=== PATIENT | female | born 1940 | race Two or more races ===

== ENCOUNTER → 2023-11-24 | Outpatient (CLI) | payer MEDICARE ==
[2023-11-24 07:47] LABS: Triglycerides 80 mg/dL (< 150)
[2023-11-24 07:48] LABS: LDL Cholesterol 106 mg/dL (< 100)
[2023-11-24 07:49] LABS: Cholesterol 175 mg/dL (< 200); HDL Cholesterol 54 mg/dL (40-59)
[2023-11-24 08:12] LABS: Protein, Urine 14.7 mg/dL (0.0-11.9)
[2023-11-24 08:15] LABS: Creatinine, Urine 76.94 mg/dL (30.0-125.0); Urine Protein/Creatinine Ratio 0.19
== END | disposition home or self-care (01) ==
LOC: LAB 07:07
PROVIDERS: ATTEND Internal Medicine
DX: I10 Essential (primary) hypertension (principal); E11.65 Type 2 diabetes mellitus with hyperglycemia; E78.00 Pure hypercholesterolemia, unspecified
CPT/HCPCS: 36415; 80061; 82043; 82570; 83036; 84156

== ENCOUNTER → 2024-04-11 | Outpatient (CLI) | payer MEDICARE ==
[2024-04-11 07:43] LABS: Creatinine, Urine 114.93 mg/dL (30.0-125.0); Urine Protein/Creatinine Ratio 0.1
[2024-04-11 08:08] LABS: Alanine Aminotransferase 18 U/L (7-40); Albumin 4.7 g/dL (3.2-4.8); Alkaline Phosphatase 143 U/L (46-116); Anion Gap 9 (5-15); Aspartate Aminotransferase 17 U/L (13-40); BUN/Creatinine Ratio 23.5 (10.0-20.0); Blood Urea Nitrogen 23 mg/dL (9-23); Carbon Dioxide 24 mmol/L (20-30); Chloride 109 mmol/L (98-107); Cholesterol 161 mg/dL (< 200); Glucose 119 mg/dL (74-106); HDL Cholesterol 53 mg/dL (40-59); LDL Cholesterol 91 mg/dL (< 100); Potassium 4.2 mmol/L (3.5-5.1); Sodium 142 mmol/L (136-145); Triglycerides 65 mg/dL (< 150)
[2024-04-11 08:09] LABS: Bilirubin, Total 0.8 mg/dL (0.2-1.0); Total Protein 7.6 g/dL (5.7-8.2)
== END | disposition home or self-care (01) ==
LOC: LAB 06:58
PROVIDERS: ATTEND Internal Medicine
DX: I10 Essential (primary) hypertension (principal); E78.00 Pure hypercholesterolemia, unspecified; E11.65 Type 2 diabetes mellitus with hyperglycemia
CPT/HCPCS: 36415; 80053; 80061; 82043; 82570; 83036; 84156

== ENCOUNTER → 2024-11-15 | Outpatient (CLI) | payer OTHER ==
[2024-11-15 07:41] LABS: Urine Bacteria None Seen /hpf (None Seen)
[2024-11-15 08:18] LABS: Urine Blood Negative /uL (Negative); Urine Clarity Clear (Clear); Urine Color Light-Yellow (Yellow); Urine Protein, UAD Negative (Negative); Urine Specific Gravity 1.021 (1.001-1.035); Urine Squamous Epithelial Cell FEW /hpf (<5); Urine Urobilinogen Normal (Negative); Urine WBC 6 /HPF (0-5)
[2024-11-15 08:34] LABS: Alanine Aminotransferase 17 U/L (7-40); Anion Gap 9 (5-15); BUN/Creatinine Ratio 19.1 (10.0-20.0); Blood Urea Nitrogen 18 mg/dL (9-23); Carbon Dioxide 23 mmol/L (20-31); Chloride 107 mmol/L (98-107); Potassium 4.2 mmol/L (3.5-5.1); Sodium 139 mmol/L (136-145); Total Protein 7.5 g/dL (5.7-8.2); Triglycerides 93 mg/dL (< 150)
[2024-11-15 08:35] LABS: Albumin 4.6 g/dL (3.2-4.8)
[2024-11-15 08:36] LABS: Aspartate Aminotransferase 17 U/L (13-40); Bilirubin, Total 0.7 mg/dL (0.2-1.0); Cholesterol 178 mg/dL (< 200); HDL Cholesterol 51 mg/dL (40-59)
[2024-11-15 08:38] LABS: Alkaline Phosphatase 143 U/L (46-116); Calcium 11.2 mg/dL (8.7-10.4); Glucose 164 mg/dL (74-106); LDL Cholesterol 109 mg/dL (< 100)
[2024-11-15 08:55] LABS: Creatinine, Urine 129.62 mg/dL (30.0-125.0)
== END | disposition home or self-care (01) ==
LOC: LAB 07:21
PROVIDERS: ATTEND Internal Medicine
DX: I10 Essential (primary) hypertension (principal); E11.65 Type 2 diabetes mellitus with hyperglycemia; E78.00 Pure hypercholesterolemia, unspecified
CPT/HCPCS: 36415; 80053; 80061; 81001; 82043; 82570; 83036; 87086

== ENCOUNTER 2025-07-26 13:47 | Emergency (ER) | payer OTHER ==
[~2025-07-26] VITALS: Ht 170.2 cm; Wt 74.8 kg
--- NOTE | 2025-07-26 14:56 | ED.PDOC ---
Nicolás. trauma (HPI) HPI Comments A 84 YEAR OLD FEMALE PRESENTS TO THE ED WITH COMPLAINT OF MULTIPLE FALL INJURY. PT PRESENTS WITH SON WHO STATES PT HAD FIRST FALL IN MIDDLE OF NIGHT WHEN SHE GOT UP TO USE RESTROOM AND HAD ANOTHER FALL WHILE IN SHOWER AT APPROXIMATELY 1300 THIS AFTERNOON. PATIENT STATES SHE DID NOT HIT HER HEAD OR HAVE ANY ASSOCIA HUONG LOSS OF CONSCIOUSNESS AFTER BOTH FALLS BUT STATES SHE HAS BEEN HAVING INCREASED WEAKNESS AND GENERALIZED MALAISE AND CAME TO THE ED FOR EVALUATION. PATIENT IN THE ED STATES THAT SHE HAS BEEN HAVING THIS WEAKNESS FOR THE PAST 3 - 4 DAYS AND STATES SHE HAS BEEN HAVING ASSOCIATED INCREASE URINARY FREQUENCY AND DYSURIA. PATIENT DENIES FEVER, CHILLS, SHORTNESS OF BREATH, CHEST PAIN, ABDOMINAL PAIN, NAUSEA, VOMITING, HEADACHE, OR OTHER COMPLAINTS. NO OTHER SYMPTOMS OR MODIFYING FACTORS AT THIS TIME. PATIENT IS ALERT, ORIENTED X 4, AND HAS STEADY GAIT. Chief Complaint: Fall Injury Time Seen by MD: 14:52 Reviewed notes: Nurses Notes, Medications, Allergies Allergies: Coded Allergies: NO KNOWN ALLERGIES (Unverified , 07/26/25) Home Meds Active Scripts Phenazopyridine HCl (Phenazopyridine Hydrochlo) 200 Mg Tab, 200 MG PO TID, #6 TAB Prov:NANDO WEINBERG 07/26/25 Levofloxacin Hemihydrate (LEVAQUIN 500 MG) 500 Mg Tab, 1 TAB PO DAILY, #7 TAB Prov:NANDO WEINBERG 07/26/25 Information Source: Patient, Relative Mode of Arrival: Ambulatory Brought in by: PATIENT'S SON Severity: Mild, Moderate Timing: Days Duration: Since onset, Days Prehospital treatment: None Mechanism: Fall Associated signs and symtoms: None Past Medical History PAST MEDICAL HISTORY: DM, HTN Surgical History: Denies all surgeries NETWORKING ENGINEER History: Denies all NETWORKING ENGINEER Hx Family History Family History: Reviewed,noncontributory to illness Social History Smoker: Non-Smoker Alcohol: Denies ETOH Use Drugs: Denies Drug Use Lives In: Home Constitutional: reports: fatigue, weakness; denies: chills, diaphoresis, fever, malaise, sweats, others EENTM: denies: blurred vision, double vision, ear bleeding, ear discharge, ear drainage, ear pain, ear ringing, eye pain, eye redness, hearing loss, mouth pain, mouth swelling, nasal discharge, nose bleeding, nose congestion, nose pain, photophobia, tearing, throat pain, throat swelling, voice changes, others Respiratory: denies: cough, hemoptysis, orthopnea, SOB at rest, shortness of breath, SOB with excertion, stridor, wheezing, others Cardiovascular: denies: chest pain, dizzy spells, diaphoresis, Dyspnea on exertion, edema, irregular heart beat, left arm pain, lightheadedness, palpitations, PND, syncope, others Gastrointestinal: denies: abdomen distended, abdominal pain, blood streaked bowels, constipated, diarrhea, dysphagia, difficulty swallowing, hematemesis, melena, nausea, poor appetite, poor fluid intake, rectal bleeding, rectal pain, vomiting, others Genitourinary: reports: burning, dysuria, frequency, urgency; denies: abnormal vagina bleeding, dyspareunia, flank pain, hematuria, incontinence, pain, , vagina discharge, others Neurological: denies: dizziness, fainting, headache, left sided numbness, left sided weakness, numbness, paresthesia, pre-existing deficit, right sided numbness, right sided weakness, seizure, speech problems, tingling, tremors, weakness, others Musculoskeletal: denies: back pain, gout, joint pain, joint swelling, muscle pain, muscle stiffness, neck pain, others Integumetry: denies: bruises, change in color, change in hair/nails, dryness, laceration, lesions, lumps, rash, wounds, others Allergic/Immunocompromised: denies: Difficulty Healing, Frequent Infections, Hives, Itching, others Hematologic/Lymphatic: denies: anemia, blood clots, easy bleeding, easy bruising, swollen glands, others Endocrine: denies: excessive hunger, excessive sweating, excessive thirst, excessive urination, flushing, intolerance to cold, intolerance to heat, unexplained weight gain, unexplained weight loss, others Psychiatric: denies: anxiety, bipolar disorder, depression, hopeless, panic disorder, schizophrenia, sleepless, suicidal, others All Other Systems: Reviewed and Negative Physical Exam General Appearance: No Apparent Distress, Normal HEENT: Head (NO EVIDENCE OF HEAD INJURY. ), Normal ENT Inspection, PERRL/EOMI, Pharynx Normal, TMs Normal Neck: Full Range of Motion, Non-Tender, Normal, Normal Inspection Respiratory: Chest Non-Tender, Lungs Clear, No Accessory Muscle Use, No Respiratory Distress, Normal Breath Sounds Cardiovascular: No Edema, No JVD, No Murmur, No Gallop, Normal Peripheral Pulses, Regular Rate/Rhythm Breast Exam: Deferred Gastrointestinal: No Organomegaly, Non Tender, No Pulsatile Mass, Normal Bowel Sounds, Soft Genitalia: Deferred Pelvic: Deferred Rectal: Deferred Extremities: No calf tenderness, Normal capillary refill, Normal inspection, Normal range of motion, Non-tender, No pedal edema Musculoskeletal : Apperance: Normal Neurologic: Alert, tower loader operator II-XII nml as Tested, No Motor Deficits, Normal Affect, Normal Mood, No Sensory Deficits Cerebellar Function: Normal Reflexes: Normal Skin: Dry, Normal Color, Warm Peripheral Pulses: 2+ carotid (R), 2+ carotid (L) Lymphatic: No Adenopathy Was a procedure done? Was a procedure done?: No Differential Diagnosis Multiple Trauma: Closed Head Injury, Fractures, Intraabdominal Injury, Spine Injury, Abrasions, Contusion, Laceration, Encephalopathy, Other (UTI, GENERALIZED WEAKNESS, METABOLIC ENCEPHALOPATHY,) X-Ray, Labs, Meds, VS Vital Signs Date Time Temp Pulse Resp B/P (MAP) Pulse Ox O2 Delivery O2 Flow Rate FiO2 07/26/25 18:32 97.9 79 16 116/64 (81) 97 97.9 07/26/25 16:04 77 14 115/60 (78) 95 07/26/25 13:50 97.5 96 15 130/67 96 97.5 Lab Test 07/26/25 15:16 07/26/25 14:54 Range/Units Urine Color Yellow Yellow Urine Clarity Turbid H Clear Urine pH 6.0 5.0-9.[address] [place] 1.019 1.001-1.035 Urine Protein 2+ H Negative Urine Ketones Trace Negative Urine Blood 1+ H Negative /uL Urine Nitrite Negative Negative Urine Bilirubin Negative Negative Urine Urobilinogen 2 H Negative mg/dL Urine Leukocyte Esterase 3+ Negative /uL Urine RBC 10 0 - 4 /hpf Urine WBC Clumps Present None Seen /hpf Urine Microscopic WBC 366 H 0-5 /HPF Urine Squamous Epithelial Cells Few <5 /hpf Urine Bacteria Few H None Seen /hpf Urine Hyaline Casts Few 0 - 2 /lpf Urine Mucus Few None Seen Urine Glucose Normal Normal mg/dL White Blood Count 13.0 H 4.4-10.8 10^3/uL Red Blood Count 4.27 4.0-5.20 10^6/uL Hemoglobin 13.5 12.2-16.2 g/dL Hematocrit 39.4 36.0-46.0 % Mean Corpuscular Volume 92.1 80.0-100.0 fL Mean Corpuscular Hemoglobin 31.7 28.0-32.0 pg Mean Corpuscular Hemoglobin Concent 34.4 32.0-36.0 g/dL Red Cell Distribution Width 12.9 11.8-14.3 % Platelet Count 201 140-450 10^3/uL Mean Platelet Volume 9.9 6.9-10.8 fL Neutrophils (%) (Auto) 91.2 H 37.0-80.0 % Lymphocytes (%) (Auto) 2.3 L 10.0-50.0 % Monocytes (%) (Auto) 6.4 0.0-12.0 % Eosinophils (%) (Auto) 0.0 0.0-7.0 % Basophils (%) (Auto) 0.1 0.0-2.0 % Neutrophils # (Auto) 11.8 H 1.6-8.6 10 ^3/uL Lymphocytes # (Auto) 0.3 L 0.4-5.4 10 ^3/uL Monocytes # (Auto) 0.8 0-1.3 10 ^3/uL Eosinophils # (Auto) 0 0-0.8 10 ^3/uL Basophils # (Auto) 0 0-0.2 10 ^3/uL Nucleated Red Blood Cells 0.0 % Sodium Level 133 L 136-145 mmol/L Potassium Level 4.0 3.5-5.1 mmol/L Chloride Level 103 98-107 mmol/L Carbon Dioxide Level 20 20-31 mmol/L Anion Gap 10 5-15 Blood Urea Nitrogen 31 H 9-23 mg/dL Creatinine 1.35 H 0.550-1.02 mg/dL Glomerular Filtration Rate Calc 39 >90 mL/min BUN/Creatinine Ratio 23.0 H 10.0-20.0 Serum Glucose 225 H 74-106 mg/dL Calcium Level 11.5 H 8.7-10.4 mg/dL Total Bilirubin 1.3 H 0.2-1.0 mg/dL Aspartate Amino Transferase (AST) 27 13-40 U/L Alanine Aminotransferase (ALT) 22 7-40 U/L Alkaline Phosphatase 153 H 46-116 U/L Troponin I High Sensitivity 18 </=34 ng/L Total Protein 8.0 5.7-8.2 g/dL Albumin 4.5 3.2-4.8 g/dL Current Medications Medications (Trade) Dose Ordered Sig/Vel Route Start Time Stop Time Status Last Admin Ceftriaxone Sodium 50 ml @ 100 mls/hr ONCE ONCE IV 07/26/25 16:15 07/26/25 16:44 DC 07/26/25 17:39 Sodium Chloride 1,000 ml @ 1,000 mls/hr Q1H ONCE IV 07/26/25 16:15 07/26/25 17:14 DC 07/26/25 16:15 [place] [id number] Ph: [phone] DIAGNOSTIC IMAGING Diagnostic Imaging Report : [id number] Signed PATIENT: HOLLIE DICKSON ACCT: [id number] UNIT: [id number] : 1940 LOC: ER ROOM / BED: / AGE / SEX: 84 / F ADM STATUS: REG ER SERVICE [id number] ORDERING PHYSICIAN: NANDO WEINBERG PROCEDURE(s): HWOCT - HEAD WITHOUT CONTRAST REASON: FALL ORDER NUMBER(s): [id number], ACCESSION NUMBER(s): [id number] CT brain without contrast CLINICAL INDICATION: FALL FINDINGS: The study was performed in a multidetector scanner. This study performed taking axial images from the skull base up to the vertex. Both brain and bone windows are photographed. Dose lowering techniques have been used including automated exposure control and adjustment of mA and/or KV according to patient size. The cortical sulcal markings are prominent. There is no intraparenchymal h emorrhage or edema. No extra-axial hemorrhage. No hydrocephalus. No midline shift. On bone windows there are no calvarial fractures. IMPRESSION: 1. No acute intracranial pathology. Mild bifrontal bitemporal cortical atrophy Computed Tomographic Radiation Dosimetry Report: Total CTDI vol = 50.36mGy Total DLP = 807.5mGy-cm All CT scans at this medical facility are performed using dose modulation techniques as appropriate to a performed exam including the following: Automated exposure control was utilized; adjustment of the MA and/or KvP according to patient size; and use of iterative reconstruction technique. ATED BY: TANNA KEYES MD DICTATED DATE/TIME: 07/26/251539 SIGNED BY: TANNA KEYES MD SIGNED DATE/TIME: 07/26/251539 CC: [place] [id number] Ph: [phone] DIAGNOSTIC IMAGING Diagnostic Imaging Report : [id number] Signed PATIENT: HOLLIE DICKSON ACCT: [id number] UNIT: [id number] : 1940 LOC: ER ROOM / BED: / AGE / SEX: 84 / F ADM STATUS: REG ER SERVICE 45 ORDERING PHYSICIAN: NANDO WEINBERG PROCEDURE(s): CXR1 - CHEST XRAY 1 VIEW REASON: FALL AND WEAK ORDER NUMBER(s): [id number], ACCESSION NUMBER(s): [id number] CHEST RADIOGRAPH INDICATION: FALL AND WEAK TECHNIQUE: Single frontal view of the chest was obtained COMPARISON: None FINDINGS: Lines and Tubes: None Lungs: No focal consolidation. Pleura: No effusion. No pneumothorax. Cardiomediastinal contours: Unremarkable Bones: No acute osseous abnormality. IMPRESSION: 1. No acute cardiopulmonary disease. ATED BY: TANNA AHUMDAA Jr., DO DICTATED DATE/TIME: 07/26/251536 SIGNED BY: TANNA AHUMADA Jr., DO SIGNED DATE/TIME: 07/26/251536 CC: X-Ray, Labs, Meds, VS Comment COURSE: EXTERNAL MEDICAL RECORDS REVIEWED: [NONE] INDEPENDENT HISTORIANS: [NONE] SOCIAL DETERMINANTS OF HEALTH: [NONE] LABS ORDERED: CBC, CMP, UA, TROPONIN X1, EKG REVIEWED AND INTERPRETED RESULTS: NORMAL EXCEPT ABNORMAL URINE TEST. IMAGING ORDERED: CT HEAD NONCONTRAST, CHEST X-RAY TREATMENTS ORDERED: 0.9 NS 1L IV BOLUS, ROCEPHIN 1GM IVPB PROCEDURES PERFORMED: NONE CRITICAL CARE TIME: NONE I HAVE DISCUSSED THE PATIENT WITH THE ATTENDING PHYSICIAN DR. DICKINSON AND HE AGREES WITH THE PATIENT'S PLAN OF CARE AND DISPOSITION. RX:LEVAQUIN 500MG AND PYRIDIUM 200MG SHARED DECISION MAKING: DISCUSSED WITH PATIENT ABOUT HER LAB TESTS AND CT- BRAIN/CHEST X-RAY REPORTS. I OFFERED TO ADMIT TO HOSPITAL FOR FURTHER EVALUATION AND TREATMENT. PT STATES SHE FEELS BETTER AFTER IV TREATMENT AND SHE WILL F/U HER PCP NEXT THURSDAY. PATIENT VERBALIZES UNDERSTANDING TO RETURN TO ED FOR NEW OR WORSENING SYMPTOMS OR IF FOLLOW UP WITH PCP CANNOT BE OBTAINED. PATIENT FEELS COMFORTABLE GOING HOME AT THIS TIME. ALL QUESTIONS ADDRESSED AT TIME OF DISCHARGE. Time of 1ST Reevaluation: 15:30 Reevaluation 1ST: Unchanged Time of 2ND Reevaluation: 18:30 Reevaluation 2ND: Improved Patient Education/Counseling: Diagnosis, Treatment, Need For Follow Up Family Education/Counseling: Diagnosis, Treatment, Need For Follow Up Medical Screening: No EMC Exist At This Time Departure 1 Departure Time of Disposition: 18:30 Impression: Primary Impression: Multiple falls Additional Impressions: UTI (urinary tract infection) Qualified Codes: N30.00 - Acute cystitis without hematuria CKD (chronic kidney disease) stage 3, GFR 30-59 ml/min Qualified Codes: N18.32 - Chronic kidney disease, stage 3b Disposition: 01 HOME / SELF CARE / HOMELESS Condition: Stable Additional Instructions: F/U PCP IN 2 DAYS RECHECK. IF CONDITION BECOME WORSE, RETURN TO ED [facility]. e-Prescriptions Phenazopyridine HCl (Phenazopyridine Hydrochlo) 200 Mg Tab 200 MG PO TID, #6 TAB Prov: NANDO WEINBERG 07/26/25 Levofloxacin Hemihydrate (LEVAQUIN 500 MG) 500 Mg Tab 1 TAB PO DAILY, #7 TAB Prov: NANDO WEINBERG 07/26/25 Discharged With: Self, Relative Critical Care Note Critical Care Time?: No Stability Stability form required: No Heart Score Heart Score: Heart Score Response (Comments) Value History N/A 0 EKG N/A 0 Age N/A 0 Risk Factors N/A 0 Troponin N/A 0 Total 0 I personally scribed for NANDO WEINBERG ([email or web address]) on 07/26/25 at 14:56. Electronically submitted by Mook Freitas ([email or web address]). I personally scribed for NANDO WEINBERG ([email or web address]) on 07/26/25 at 15:50. Electronically submitted by Mook Freitas ([facility]). I personally scribed for NANDO WEINBERG ([email or web address]) on 07/26/25 at 17:14. Electronically submitted by Mook Freitas ([facility]). NANDO WEINBERG Jul 26, 2025 14:56
[2025-07-26 15:16] LABS: Hematocrit 39.4 % (36.0-46.0); Hemoglobin 13.5 g/dL (12.2-16.2); Mean Corpuscular Hemoglobin 31.7 pg (28.0-32.0); Mean Corpuscular Volume 92.1 fL (80.0-100.0); Nucleated Red Blood Cells % 0.0 %
[2025-07-26 15:26] LABS: Alanine Aminotransferase 22 U/L (7-40); Albumin 4.5 g/dL (3.2-4.8); Anion Gap 10 (5-15); BUN/Creatinine Ratio 23.0 (10.0-20.0); Carbon Dioxide 20 mmol/L (20-31); Chloride 103 mmol/L (98-107); Potassium 4.0 mmol/L (3.5-5.1); Total Protein 8.0 g/dL (5.7-8.2)
[2025-07-26 15:35] LABS: Urine Protein, UAD 2+ (Negative); Urine WBC Clumps PRESENT /hpf (None Seen)
--- NOTE | 2025-07-26 15:40 | DVH ---
CHEST RADIOGRAPH INDICATION: FALL AND WEAK TECHNIQUE: Single frontal view of the chest was obtained COMPARISON: None FINDINGS: Lines and Tubes: None Lungs: No focal consolidation. Pleura: No effusion. No pneumothorax. Cardiomediastinal contours: Unremarkable Bones: No acute osseous abnormality. IMPRESSION: 1. No acute cardiopulmonary disease.
--- NOTE | 2025-07-26 15:43 | DVH ---
CT brain without contrast CLINICAL INDICATION: FALL FINDINGS: The study was performed in a multidetector scanner. This study performed taking axial images from the skull base up to the vertex. Both brain and bone windows are photographed. Dose lowering techniques have been used including automated exposure control and adjustment of mA and/or KV according to patient size. The cortical sulcal markings are prominent. There is no intraparenchymal hemorrhage or edema. No extra-axial hemorrhage. No hydrocephalus. No midline shift. On bone windows there are no calvarial fractures. IMPRESSION: 1. No acute intracranial pathology. Mild bifrontal bitemporal cortical atrophy Computed Tomographic Radiation Dosimetry Report: Total CTDI vol = 50.36mGy Total DLP = 807.5mGy-cm All CT scans at this medical facility are performed using dose modulation techniques as appropriate to a performed exam including the following: Automated exposure control was utilized; adjustment of the MA and/or KvP according to patient size; and use of iterative reconstruction technique.
[2025-07-26 16:00] LABS: Alkaline Phosphatase 153 U/L (46-116); Bilirubin, Total 1.3 mg/dL (0.2-1.0); Blood Urea Nitrogen 31 mg/dL (9-23); Calcium 11.5 mg/dL (8.7-10.4); Glucose 225 mg/dL (74-106); Sodium 133 mmol/L (136-145)
[2025-07-26] MEDS: SODIUM CHLORIDE 0.9% 1,000 ML IV ONE (16:15)
[2025-07-26] MEDS ORDERED: LEVO500T91 PO ×2 (17:30)
[2025-07-26] MEDS ORDERED: PHEN-922 PO ×2 (17:30)
[2025-07-26 18:32] VITALS: BP 116/64; PULSE 79; RESP 16; TEMP 97.9; O2SAT 97
[2025-07-28] MEDS ORDERED: BIOT50006 PO ×2 (04:44)
[2025-07-28] MEDS ORDERED: GLUC1TAB22 PO ×2 (04:44)
[2025-07-28] MEDS ORDERED: CHONCAP OR ×2 (04:44)
[2025-07-28] MEDS ORDERED: GLIM2TAB33 PO ×2 (04:48)
[2025-07-28] MEDS ORDERED: METF-489 PO ×2 (04:48)
[2025-07-28] MEDS ORDERED: GEMF-66 PO ×2 (04:48)
[2025-07-28] MEDS ORDERED: MULT-902 OR ×2 (04:48)
[2025-07-28] MEDS ORDERED: PRAV20TA3 PO ×2 (04:48)
[2025-07-28] MEDS ORDERED: ATE50T PO ×2 (04:48)
[2025-07-28] MEDS ORDERED: HYDR50TA47 PO ×2 (04:48)
[2025-07-30] MEDS ORDERED: ERGO1CAP23 PO ×2 (13:24)
[2025-07-30] MEDS ORDERED: CEPH250C PO ×2 (13:24)
== END 2025-07-26 18:35 | disposition home or self-care (01) ==
LOC: ER 13:47
DX: N39.0 Urinary tract infection, site not specified (principal); I12.9 Hypertensive chronic kidney disease with stage 1 through stage 4 chronic kidney disease, or unspecified chronic kidney disease; E11.22 Type 2 diabetes mellitus with diabetic chronic kidney disease; N18.32 Chronic kidney disease, stage 3b; W18.2XXA Fall in (into) shower or empty bathtub, initial encounter; Y93.E1 Activity, personal bathing and showering; Y92.89 Other specified places as the place of occurrence of the external cause; Y99.8 Other external cause status
CPT/HCPCS: 36415; 70450; 71045; 80053; 81001; 84484; 85025; 87086; 96361; 96365; 99285; J0696; J7030